=== PATIENT | female | born 1960 | race Hispanic/Latino ===

== ENCOUNTER 2019-12-23 | Emergency (ER) | payer OTHER | END 2019-12-23 21:33 | disposition home or self-care (01) | PROC: 0JQN0ZZ Repair Right Lower Leg Subcutaneous Tissue and Fascia, Open Approach (ICD-10-PCS; principal; 2019-12-23) | CPT/HCPCS: 96365; 73590; 90471; 90714; 96375; 99284; 12005; J3010; J1170; J2405 ==